=== PATIENT | female | born 1970 | race Caucasian/White ===

== ENCOUNTER 2017-09-06 20:38 | Emergency (ER) | payer OTHER ==
[~2017-09-06] VITALS: Ht 165.1 cm; Wt 64.9 kg
[~2017-09-06 20:38] MED LIST: ALAVERT10 MG PO; ALEVE220 M1 PO; CELEXA 20 MG TA20 MG PO; DELTASONE20 MG PO; IBUPROFEN 800800 M1 PO; NOHOMEMEDICATIONS; NORCO 5-325 TA1 EACH PO; PENICILLIN VK500 M1 PO; TESSALON PERLE100 MG PO; TRAMADOL 50 MG50 MG PO
[2017-09-06 20:45] VITALS: BP 145/100
[2017-09-06] MEDS ORDERED: HYDROCHLOROTHIA25 M2 PO (20:48)
[2017-09-06] MEDS ORDERED: NORCO 5-325 TA1 EACH PO (20:55)
[2017-09-06] MEDS ORDERED: ACYCLOVIR 400400 MG PO (20:55)
[2017-09-06] MEDS ORDERED: ACYCLOVIR 800800 MG PO (20:56)
== END 2017-09-06 21:10 | disposition home or self-care (01) ==
LOC: M.ERS 20:38
DX: B02.9 Zoster without complications (principal); Z88.5 Allergy status to narcotic agent